=== PATIENT | male | born 1955 | race African-American/Black ===

== ENCOUNTER → 2023-01-15 | Outpatient (CLI) | payer MEDICARE, MEDICAID | END | disposition home or self-care (01) | LOC: MRI 09:29 | PROVIDERS: ATTEND Neurological Surgery | DX: M48.02 Spinal stenosis, cervical region (principal); M50.21 Other cervical disc displacement, high cervical region | CPT/HCPCS: 72141 ==

== ENCOUNTER 2023-01-30 05:03 | Inpatient (IN) | payer MEDICARE, MEDICAID ==
[~2023-01-30] VITALS: Ht 175.3 cm; Wt 88.0 kg
[2023-01-30] VITALS (41 sets, daily range): BP systolic 107–155; BP diastolic 52–81
[2023-01-30] MEDS ORDERED: ACETAMINOPHEN 500MG TABLET ONE (06:45)
[2023-01-30] MEDS ORDERED: SODIUM CHLORIDE 0.9% 1,000 ML IV SCH (07:50)
[2023-01-30] MEDS ORDERED: PROPOFOL 200MG/20ML VIAL IV ONE (08:14)
[2023-01-30] MEDS ORDERED: SUCCINYLCHOLINE CHLORIDE 200MG/10ML IV ONE (08:15)
[2023-01-30] MEDS ORDERED: ONDANSETRON HCL 4MG/2ML INJ ONE (08:15)
[2023-01-30] MEDS ORDERED: LIDOCAINE HCL 1% 10 MG/ML 10ML VIAL ONE (08:17)
[2023-01-30] MEDS ORDERED: PROPOFOL 10MG/ML 100ML 100 ML IV ONE (08:20)
[2023-01-30] MEDS ORDERED: NICARDIPINE 40MG/200ML PREMIX 200 ML IV ONE (08:20)
[2023-01-30] MEDS ORDERED: FENTANYL CITRATE/PF 50MCG/ML 2ML VIAL ONE (10:10)
[2023-01-30] MEDS ORDERED: MIDAZOLAM HCL 2 MG/2 ML VIAL ONE (10:11)
[2023-01-30] MEDS ORDERED: MORPHINE SULFATE 4 MG/ML CPJ (NOT FOR IM USE) IV PRN (10:15)
[2023-01-30] MEDS ORDERED: ROCURONIUM BROMIDE 10MG/ML VIAL 5ML IV ONE (10:35)
[2023-01-30] MEDS ORDERED: SKIN ADHESIVE 0.7 GM EA TOP ONE (10:41)
[2023-01-30] MEDS ORDERED: EPHEDRINE SULFATE 50MG/ML VIAL ONE (11:03)
[2023-01-30] MEDS ORDERED: SITA25TA3 PO (11:04)
[2023-01-30] MEDS ORDERED: ATOR40TA70 PO (11:04)
[2023-01-30] MEDS ORDERED: TELM20TA8 PO (11:04)
[2023-01-30] MEDS ORDERED: AMLO10TA80 PO (11:04)
[2023-01-30] MEDS ORDERED: GENTAMICIN SULF 40MG/ML 2ML VIAL ONE (11:10)
[2023-01-30] MEDS ORDERED: THROMBIN (BOVINE) 5000 UNITS/VIAL TOP ONE (11:13)
[2023-01-30] MEDS ORDERED: HYDROMORPHONE HCL/PF 2MG/ML CPJ ONE (11:22)
[2023-01-30] MEDS ORDERED: LABETALOL HCL 5MG/ML VIAL 20ML IV ONE (11:27)
[2023-01-30] MEDS ORDERED: NEOSTIGMINE METHYLSULFATE 1MG/ML 10 ML VIAL ONE (11:45)
[2023-01-30] MEDS ORDERED: GLYCOPYRROLATE 0.2 MG/ML 2ML VIAL ONE (11:45)
[2023-01-30] MEDS ORDERED: ONDANSETRON HCL 4MG/2ML INJ IV PRN ×2 (11:45→17:00)
[2023-01-30] MEDS ORDERED: DIPHENHYDRAMINE INJ IV PRN (12:00)
[2023-01-30] MEDS ORDERED: ONDANSETRON INJ IV PRN (12:00)
[2023-01-30] MEDS ORDERED: HYDROMORPHONE PCA 10MG/50ML IV PRN (12:00)
[2023-01-30] MEDS ORDERED: NALOXONE INJ IV PRN (12:00)
[2023-01-30] MEDS ORDERED: NICARDIPINE 100 MG in SODIUM CHLORIDE 0.9% 60 ML IV PRN (12:00)
[2023-01-30] MEDS ORDERED: NALOXONE HCL 0.4 MG/ML 1ML VIAL ONE (12:20)
[2023-01-30] MEDS: DEXT 5%/LACTATED RINGERS 1,000 ML IV SCH ×2 (13:28→23:19)
[2023-01-30] MEDS: DEXAMETHASONE 4MG/ML 1ML VIAL IV SCH ×3 (13:32→23:13)
[2023-01-30] MEDS ORDERED: CEFAZOLIN 1000MG PREMIX 50 ML IV SCH (14:00)
[2023-01-30] MEDS ORDERED: CEFAZOLIN SODIUM 1000MG/VIAL IV SCH (14:00)
[2023-01-30] MEDS: CEFAZOLIN 1000MG PREMIX 50 ML IV SCH ×2 (16:00→23:13)
[2023-01-30] MEDS ORDERED: MAGNESIUM/ALUMINUM HYDROXIDE/SIMETHICONE 30ML UDC PO PRN (17:00)
[2023-01-30] MEDS ORDERED: DEXTROSE 50% WATER 50ML SYRINGE IV PRN (17:00)
[2023-01-30] MEDS ORDERED: IPRATROPIUM/ALBUTEROL 0.5-3(2.5)MG/3ML NEB HHN PRN (17:00)
[2023-01-30] MEDS ORDERED: DOCUSATE SODIUM 100MG CAPSULE PO PRN (17:00)
[2023-01-30] MEDS: INSULIN LISPRO 100 UNITS/ML SUBCUT SCH ×2 (17:52→21:20)
[2023-01-30 18:47] LABS: HEPATITIS B SURFACE ANTIGEN NEGATIVE
[2023-01-30] MEDS ORDERED: NALOXONE HCL 0.4MG/ML VIAL IV PRN (20:15)
[2023-01-30] MEDS: BLOOD SUGAR DIAGNOSTIC STRIP TEST SCH (21:16)
[2023-01-30] MEDS: ATORVASTATIN CALCIUM 40MG TABLET PO SCH (21:20)
[2023-01-31] VITALS (76 sets, daily range): BP systolic 48–171; BP diastolic 28–124
[2023-01-31 05:16] LABS: HEMATOCRIT. 46.4 % (42.0-52.0); HEMOGLOBIN. 15.3 g/dL (14.0-18.0); LYMPHOCYTES % 7.8 % (20.0-50.0); MEAN CORPUSCULAR HEMOGLOBIN 26.4 pg (28.0-32.0); MEAN CORPUSCULAR VOLUME 79.8 fL (80.0-94.0); MEAN PLATELET VOLUME 7.4 fl (7.4-10.4); MONOCYTES % 2.3 % (2.0-8.0); NEUTROPHILS % 89.9 % (40.0-76.0); PLATELET 183 x1000/uL (130-400); RED BLOOD CELL COUNT 5.81 mill/uL (4.7-6.1); RED CELL DISTRIBUTION WIDTH 17.8 % (11.6-14.6)
[2023-01-31 05:20] LABS: CHLORIDE 108 mEq/L (98-107)
[2023-01-31 05:37] LABS: HDL CHOLESTEROL 47 mg/dL (40-59); LDL CHOLESTEROL 39 mg/dL (5-100); PHOSPHORUS 2.4 mg/dL (2.5-4.9)
[2023-01-31] MEDS: BLOOD SUGAR DIAGNOSTIC STRIP TEST SCH ×4 (06:29→20:31)
[2023-01-31] MEDS: CEFAZOLIN 1000MG PREMIX 50 ML IV SCH ×2 (06:35→14:09)
[2023-01-31] MEDS: PANTOPRAZOLE 40MG DR TABLET PO SCH (06:36)
[2023-01-31] MEDS: DEXAMETHASONE 4MG/ML 1ML VIAL IV SCH ×2 (06:36→12:54)
[2023-01-31] MEDS: INSULIN LISPRO 100 UNITS/ML SUBCUT SCH ×4 (08:45→20:31)
[2023-01-31] MEDS: DEXT 5%/LACTATED RINGERS 1,000 ML IV SCH (08:51)
[2023-01-31] MEDS ORDERED: AMLODIPINE 10MG TABLET PO SCH (09:00)
[2023-01-31] MEDS ORDERED: HYDRALAZINE 20MG/ML VIAL IV PRN (09:30)
[2023-01-31] MEDS ORDERED: HYDROCODONE/ACETAMINOPHEN 5/325MG TABLET PO PRN (15:30)
[2023-01-31] MEDS ORDERED: INSULIN LISPRO 100 UNITS/ML SUBCUT SCH (16:30)
[2023-01-31] MEDS: ATORVASTATIN CALCIUM 40MG TABLET PO SCH (20:30)
[2023-01-31] MEDS ORDERED: HYDRALAZINE 5 MG in SODIUM CHLORIDE 0.9% 49.5 ML IV PRN (21:00)
[2023-01-31] MEDS ORDERED: HYDRALAZINE 5 MG in SODIUM CHLORIDE 0.9% 49.75 ML IV PRN (21:00)
[2023-01-31] MEDS: THROAT LOZENGES-BENZOCAINE/MENTH/CETYLPYRD CL LOZENGES MM PRN (22:53)
[2023-02-01 00:28] VITALS: BP 131/68
[2023-02-01 04:00] VITALS: BP 135/92
[2023-02-01 07:33] LABS: HEMATOCRIT 46.2 % (42.0-52.0); HEMOGLOBIN 15.3 g/dL (14.0-18.0); MEAN CORPUSCULAR HEMOGLOBIN 26.2 pg (28.0-32.0); MEAN CORPUSCULAR VOLUME 78.9 fL (80.0-94.0); PLATELET 190 x1000/uL (130-400); RED BLOOD CELL COUNT 5.85 mill/uL (4.7-6.1); RED CELL DISTRIBUTION WIDTH 17.6 % (11.6-14.6)
[2023-02-01 07:43] LABS: CHLORIDE 108 mEq/L (98-107)
[2023-02-01 07:50] LABS: PHOSPHORUS 3.9 mg/dL (2.5-4.9)
[2023-02-01] MEDS ORDERED: AMLODIPINE 5MG TABLET PO SCH (09:00)
[2023-02-01] MEDS: PANTOPRAZOLE 40MG DR TABLET PO SCH (09:10)
[2023-02-01] MEDS ORDERED: INSULIN GLARGINE 100 UNITS/ML SUBCUT SCH (10:00)
[2023-02-01] MEDS: THROAT LOZENGES-BENZOCAINE/MENTH/CETYLPYRD CL LOZENGES MM PRN (10:23)
[2023-02-01 13:16] VITALS: BP 128/70
[2023-02-02] MEDS ORDERED: FAMOTIDINE 20MG TABLET PO SCH (09:00)
== END 2023-02-01 14:46 | disposition home health service (06) | DRG 471 ==
LOC: OR 05:03 → MICUSO 05:04 → 6EST 01-31 20:55
PROVIDERS: ADMIT Internal Medicine; ATTEND Internal Medicine
PROC: 0RG10A0 Fusion of Cervical Vertebral Joint with Interbody Fusion Device, Anterior Approach, Anterior Column, Open Approach (ICD-10-PCS; principal; 2023-01-31)
PROC: 0RB30ZZ Excision of Cervical Vertebral Disc, Open Approach (ICD-10-PCS; 2023-01-31)
PROC: 01N10ZZ Release Cervical Nerve, Open Approach (ICD-10-PCS; 2023-01-31)
PROC: 4A11X4G Monitoring of Peripheral Nervous Electrical Activity, Intraoperative, External Approach (ICD-10-PCS; 2023-01-31)
DX: M48.02 Spinal stenosis, cervical region (principal); G82.50 Quadriplegia, unspecified; M50.00 Cervical disc disorder with myelopathy, unspecified cervical region; I10 Essential (primary) hypertension; G47.33 Obstructive sleep apnea (adult) (pediatric); Z20.822 Contact with and (suspected) exposure to COVID-19; E78.5 Hyperlipidemia, unspecified; E11.9 Type 2 diabetes mellitus without complications; R26.9 Unspecified abnormalities of gait and mobility
CPT/HCPCS: 36415; 71045; 72040; 72141; 76000; 80048; 80061; 82962; 83036; 83735; 84100; 84439; 84443; 85025; 85027; 86803; 86850; 86900; 87340; 87426; 88304; 88311; 93970; 95925; 95926; 95928; 95929; 97162; C9803; J0330; J0360; J0690; J1100; J1170; J1200; J1580; J1815; J2250; J2270; J2310; J2405; J2704; J2710; J3010; J3490; J7121; L0172; C1713

== ENCOUNTER → 2023-05-14 | Outpatient (CLI) | payer MEDICARE, MEDICAID ==
[~2023-05-14] MED LIST: AMLO10TA80 PO; ATOR40TA70 PO; SITA25TA3 PO; TELM20TA8 PO
== END | disposition home or self-care (01) ==
LOC: RAD 12:28
PROVIDERS: ATTEND Neurological Surgery
DX: M48.02 Spinal stenosis, cervical region (principal); M50.323 Other cervical disc degeneration at C6-C7 level
CPT/HCPCS: 72052

== ENCOUNTER → 2023-05-21 | Outpatient (CLI) | payer MEDICARE, MEDICAID ==
[~2023-05-21] MED LIST changes: +BARIUM SULFATE 176 GM SUSP.RECON ONE; +EZ-HD SUSPENSION(BARIUM SULFATE 340GM) PO ONE
== END | disposition home or self-care (01) ==
LOC: RAD 09:31
PROVIDERS: ATTEND Internal Medicine Gastroenterology
DX: R13.10 Dysphagia, unspecified (principal)
CPT/HCPCS: 74220